=== PATIENT | male | born 1950 | race African-American/Black ===

== ENCOUNTER 2018-08-30 12:51 | Emergency (ER) | payer MEDICARE, MEDICAID ==
[~2018-08-30] VITALS: Ht 193 cm; Wt 98.0 kg
[2018-08-30] MEDS ORDERED: HYDROCODONE/ACETAMINOPHEN 5/325MG TABLET PO ONE (13:45)
[2018-08-30 14:28] LABS: HEMATOCRIT. 36.5 % (42.0-52.0); HEMOGLOBIN. 12.2 g/dL (14.0-18.0); MEAN CORPUSCULAR HEMOGLOBIN 33.8 pg (28.0-32.0); MEAN CORPUSCULAR VOLUME 101.6 fL (80.0-94.0); MEAN PLATELET VOLUME 6.5 fl (7.4-10.4); PLATELET 239 x1000/uL (130-400); RED CELL DISTRIBUTION WIDTH 14.4 % (11.6-14.6)
[2018-08-30 14:32] LABS: CHLORIDE 105 mEq/L (98-107)
[2018-08-30 14:55] LABS: PLATELET ESTIMATE NORMAL
[2018-08-30] MEDS ORDERED: KETOROLAC 30MG/ML VIAL IV NR (15:45)
[2018-08-30 18:08] VITALS: BP 131/83
== END 2018-08-30 18:18 | disposition home or self-care (01) ==
LOC: ER 12:51 → CANBEDREQ 19:36
DX: S22.31XA Fracture of one rib, right side, initial encounter for closed fracture (principal); S00.83XA Contusion of other part of head, initial encounter; I11.9 Hypertensive heart disease without heart failure; E78.00 Pure hypercholesterolemia, unspecified; I25.10 Atherosclerotic heart disease of native coronary artery without angina pectoris; F17.200 Nicotine dependence, unspecified, uncomplicated; Z96.651 Presence of right artificial knee joint; W18.39XA Other fall on same level, initial encounter; Y93.89 Activity, other specified; Y92.89 Other specified places as the place of occurrence of the external cause; Y99.8 Other external cause status
CPT/HCPCS: 36415; 70450; 71045; 71100; 80053; 84484; 85025; 93005; 96374; 99284; J1885; Z7610